=== PATIENT | male | born 1980 | race Two or more races ===

== ENCOUNTER 2017-09-10 18:12 | Emergency (ER) | payer SELFPAY ==
[~2017-09-10] VITALS: Ht 170.2 cm; Wt 79.0 kg
[2017-09-10] MEDS ORDERED: SODIUM CHLORIDE 0.9% 1,000 ML IV ONE (21:35)
[2017-09-10] MEDS ORDERED: ONDANSETRON HCL 4MG/2ML VIAL IV STA (21:35)
[2017-09-10 22:08] LABS: INR 0.9; PROTHROMBIN TIME 9.9 sec (9.4-11.6)
[2017-09-10 22:11] LABS: BASOPHILS % 0.3 % (0.0-2.0); EOSINOPHILS % 3.5 % (0.0-5.0); HEMATOCRIT. 44.5 % (42.0-52.0); HEMOGLOBIN. 15.3 g/dL (14.0-18.0); LYMPHOCYTES % 45.2 % (20.0-50.0); MEAN CORPUSCULAR HEMOGLOBIN 32.7 pg (28.0-32.0); MEAN CORPUSCULAR VOLUME 95.4 fL (80.0-94.0); PLATELET 110 x1000/uL (130-400); RED BLOOD CELL COUNT 4.67 mill/uL (4.7-6.1); RED CELL DISTRIBUTION WIDTH 14.3 % (11.6-14.6)
[2017-09-10 22:13] LABS: CHLORIDE 106 mEq/L (98-107)
[2017-09-10 22:16] LABS: CREATINE KINASE 68 IU/L (39-308)
[2017-09-10 22:19] LABS: TROPONIN I < 0.02 ng/mL (0.00-0.04)
[2017-09-10 22:27] LABS: AMMONIA 61 uMol/L (<32)
[2017-09-10 22:31] LABS: ETHANOL BLOOD 458 mg/dL
[2017-09-10] MEDS ORDERED: LORAZEPAM 2MG/ML CPJ IV ONE (22:45)
[2017-09-11] VITALS: BP 131/61
== END 2017-09-11 06:00 | disposition home or self-care (01) ==
LOC: ER 18:12
DX: T51.0X1A Toxic effect of ethanol, accidental (unintentional), initial encounter (principal); G92 Toxic encephalopathy; I45.10 Unspecified right bundle-branch block; Y92.488 Other paved roadways as the place of occurrence of the external cause
CPT/HCPCS: 36415; 80053; 80307; 80329; 82140; 82550; 84443; 84484; 85025; 85610; 93005; 96361; 96374; 96375; 99285; G0482; J2060; J2405; J7030

== ENCOUNTER 2022-04-09 02:27 | Emergency (ER) | payer SELFPAY ==
[~2022-04-09] VITALS: Ht 167.6 cm; Wt 86.0 kg
[2022-04-09 02:30] VITALS: BP 136/86
== END 2022-04-09 06:45 | disposition left against medical advice (07) ==
LOC: ER 02:40
DX: F10.129 Alcohol abuse with intoxication, unspecified (principal); Z87.891 Personal history of nicotine dependence; Y90.9 Presence of alcohol in blood, level not specified
CPT/HCPCS: 99283